=== PATIENT | male | born 1970 | race Caucasian/White ===

== ENCOUNTER 2017-07-05 13:08 | Emergency (ER) | payer BC ==
[2017-07-05 14:09] LABS: Troponin I Less than 0.010 ng/mL (< 0.028)
[2017-07-05] MEDS ORDERED: Rivaroxaban 10 MG TAB PO SCH (15:00)
[2017-07-05] MEDS ORDERED: Dronedarone HCl 400 MG TAB PO SCH (15:00)
== END 2017-07-05 15:22 | disposition home or self-care (01) ==
LOC: ERS 13:08
DX: I48.91 Unspecified atrial fibrillation (principal); Z87.442 Personal history of urinary calculi
CPT/HCPCS: 36415; 93005